=== PATIENT | female | born 1970 | race Two or more races ===

== ENCOUNTER 2016-04-15 18:42 | Emergency (ER) | payer MEDICAID ==
[~2016-04-15] VITALS: Ht 154.9 cm; Wt 51.7 kg
[~2016-04-15 18:42] MED LIST: CIPROFLOXACIN500 M2 ORAL; MACROBID100 MG ORAL; TYLENOL650 MG/20. ORAL
[2016-04-15 19:01] VITALS: BP 119/79
[2016-04-15] MEDS ORDERED: DEBROX15 M1 LEFT EAR (19:38)
[2016-04-15] MEDS ORDERED: AMOXICILLIN500 MG ORAL (20:27)
[2016-04-15 20:43] VITALS: BP 94/49
[2016-04-15 20:48] VITALS: BP 94/49
--- NOTE | 2016-04-15 22:05 | Emergency Room Report ---
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 presenting for R hand pain which began 2 days prior. Pt has a hx of MR, psychosis, and seizures. The director life insurance noticed the R hand has been contracted for the past 2 days. The pt is L handed and the director life insurance states the patient does not use the R hand often. The pt and director life insurance deny any trauma to the hand, elbow, or arm. Pain is a 9/10 dull ache and radiated throughout the entire arm. Pain worse with movement of the fingers. No numbness or tingling. No change in mental status, dizziness, blurred vision, N, V, F, chills, DRIVER, myalgia, CP, SOB (BRENDA EAST P.A.) Allergies: Coded Allergies: ASPIRIN (Verified Allergy, Mild, Rash, 10/23/14) PHENYTOIN (Verified Allergy, Mild, Rash, 10/23/14) Patient History Past Medical History: see triage record Pertinent Family History: none Last Menstrual Period: post Now: No : 2 Para: 2 Reviewed Nursing Documentation: PMH: Agreed, PSxH: Agreed (BRENDA EAST P.A.) Nursing Documentation-PMH Hx Neurological Problems: No - SCHIZOPHRENIA Hx Seizures: Yes (BRENDA EAST P.A.) Review of Systems All Other Systems: negative except mentioned in HPI (BRENDA EAST P.A.) Physical Exam Vital Signs Date Time Temp Pulse Resp B/P Pulse Ox O2 Delivery O2 Flow Rate FiO2 04/15/16 18:50 97.9 117 20 119/79 100 Room Air Sp02 EP Interpretation: reviewed, normal General Appearance: no apparent distress, alert, GCS 15, non-toxic Head: normocephalic, atraumatic Eyes: bilateral eye PERRL, bilateral eye normal inspection ENT: hearing grossly normal, normal pharynx, no angioedema, uvula midline, moist mucus membranes, other - L TM erythematous and bulging Neck: full range of motion, supple/symm/no masses Respiratory: chest non-tender, lungs clear, normal breath sounds, speaking full sentences Cardiovascular #1: regular rate, rhythm, no edema Gastrointestinal: normal bowel sounds, non tender, soft, non-distended, no guarding, no rebound Rectal: deferred Genitourinary: normal inspection, no CVA tenderness Musculoskeletal: back normal, gait/station normal, other - Mild flexion of the R hand 3,rd,4th,and 5th digits Neurologic: alert, responsive, explosive ordnance specialist III-XII nml as tested, motor strength/tone normal, sensory intact Psychiatric: judgement/insight normal, memory normal, mood/affect normal Skin: normal color, no rash, warm/dry, well hydrated (BRENDA EAST) Medical Decision Making PA Attestation Dr. Mcgraw is my supervising physician. 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 presenting for R hand pain and ear pain which began 2 days prior. DDx: AOM, otitis externa, pharyngitis DDx: carpal tunnel syndrome, Dupuytren contracture, Volkman contracture, sprain PE: NAD. CN II-XII intact L ear: TM is erythematous and bulging. + cervical lymphad. Mild flexion of the R hand 3,rd,4th,and 5th digits. No discoloration. SILT. Otherwise exam unremarkable. Xray unremarkable. The pt will be treated for otitis media and will FU with PMD for further treatment and workup for the contracture of hand. Mobile Health Vehicle Operator advised of this. ER precautions given (BRENDA EAST) ER Course I agree with PA HPI and PE, as well as their assessment/plan. I also concur with PA review of imaging and rhythm strip without additional interpretation. (JAYSON MCGRAW M.D.) Other X-Ray Diagnostic Results Other X-Ray Diagnostic Results : X-Ray Ordered: R hand Date: Apr 15, 2016 EP Interpretation: Yes Findings: no fractures, no dislocation, no soft tissue swelling Number of Views: 3 PA Scribe Text I am acting as scribe for my supervising physician. My supervising physician's interpretation of the R hand xrays are there are no fractures, dislocations or soft tissue swelling. (BRENDA EAST) Last Vital Signs Date Time Temp Pulse Resp B/P Pulse Ox O2 Delivery O2 Flow Rate FiO2 04/15/16 20:48 89 16 94/49 95 Room Air 04/15/16 20:43 97.7 Status: improved (BRENDA EAST) Disposition: HOME, SELF-CARE Condition: Improved Scripts Amoxicillin* (AMOXIL*) 500 Mg Capsule 500 MG ORAL BID, #20 CAP Prov: BRENDA EAST 04/15/16 Patient Instructions: Otitis Media, Adult Additional Instructions: I discussed my findings with the patient. All questions and concerns have been answered. Treatment and medication compliance have been addressed. I advised the patient that they need to follow up with PMD in 3-5 days. Return to ED if symptoms worsen, new symptoms arise, or if needed for any reason. Patient verbalized understanding of discharge instructions. The patient and director life insurance are advised to followup with her primary care physician and possibly obtain referral for hand specialist. BRENDA EAST Apr 15, 2016 22:05 JAYSON MCGRAW M.D. Apr 17, 2016 03:49
--- NOTE | 2016-04-16 10:02 | Diagnostic Imaging Report ---
Indication: Right hand pain Technique: Right hand 3 views Comparison: None Findings: Flexion of the third, fourth and fifth digits limit evaluation. Otherwise no gross fracture is seen. Bone mineralization is normal. Soft tissues are grossly unremarkable. Impression: Limited examination secondary to flexion of the third, fourth and fifth digits. No gross fracture. Followup/further evaluation recommended as indicated.
== END 2016-04-15 20:50 | disposition home or self-care (01) ==
LOC: EMR 19:45
DX: M24.541 Contracture, right hand (principal); H65.112 Acute and subacute allergic otitis media (mucoid) (sanguinous) (serous), left ear; Z88.6 Allergy status to analgesic agent; Z88.8 Allergy status to other drugs, medicaments and biological substances
CPT/HCPCS: 99283

== ENCOUNTER 2017-01-25 18:59 | Emergency (ER) | payer MEDICAID ==
[~2017-01-25] VITALS: Ht 157.5 cm; Wt 45.4 kg
[~2017-01-25 18:59] MED LIST changes: +AMOXICILLIN500 MG ORAL; +DEBROX15 M1 LEFT EAR
[2017-01-25] MEDS ORDERED: Sodium Chloride 500ML 500 ML IV ONE (19:08)
--- NOTE | 2017-01-25 19:23 | Emergency Room Report ---
History of Present Illness General Chief Complaint: Altered Level of Consciousness Source: Patient, Medical Record Present Illness HPI Patient presents with manufacturing technician from [facility] Patient has developmental delay Apparently patient left the facility 2 weeks ago Came back on Monday and was acting sluggish Appear to be possibly under the influence of drugs There was no reports of vomiting No reports of diarrhea No reports of fevers Allergies: Coded Allergies: ASPIRIN (Verified Allergy, Mild, Rash, 10/23/14) PHENYTOIN (Verified Allergy, Mild, Rash, 10/23/14) Patient History Past Medical History: see triage record Pertinent Family History: none Last Menstrual Period: menopause Reviewed Nursing Documentation: PMH: Agreed, PSxH: Agreed Nursing Documentation-PMH Past Medical History: No History, Except For Hx Neurological Problems: No - SCHIZOPHRENIA Hx Seizures: Yes Review of Systems All Other Systems: negative except mentioned in HPI Physical Exam Vital Signs Date Time Temp Pulse Resp B/P (MAP) Pulse Ox O2 Delivery O2 Flow Rate FiO2 01/25/17 19:04 98.1 67 18 109/76 100 Room Air Sp02 EP Interpretation: reviewed, normal General Appearance: no apparent distress Head: normocephalic, atraumatic Eyes: bilateral eye PERRL, bilateral eye EOMI ENT: hearing grossly normal, normal pharynx, TMs + canals normal, uvula midline Neck: full range of motion, supple, no meningismus, no bony tend Respiratory: lungs clear, normal breath sounds, no rhonchi, no respiratory distress, no retraction, no accessory muscle use Cardiovascular #1: normal peripheral pulses, regular rate, rhythm, no edema, no gallop, no JVD, no murmur Gastrointestinal: normal bowel sounds, non tender, soft, no mass, no organomegaly, non-distended, no guarding, no hernia, no pulsatile mass, no rebound Genitourinary: no CVA tenderness Musculoskeletal: normal inspection Neurologic: responsive, carpenter's assistant III-XII nml as tested, motor strength/tone normal, sensory intact Psychiatric: mood/affect normal - Patient does respond to questions appropriately does have developmental delay Skin: normal color, no rash, warm/dry, palpation normal Lymphatic: normal inspection, no adenopathy Medical Decision Making Diagnostic Impression: Primary Impression: UTI (lower urinary tract infection) Additional Impression: Cocaine use ER Course Multiple differentials considered Patient's manufacturing technician does report previous history of drug abuse this was examined and the patient was positive for cocaine There is also evidence of bladder infection Patient was provided with IV hydration and antibiotics Patient remains appropriate responsive when aroused And at this time stable for close outpatient followup Labs Test 01/25/17 19:14 01/25/17 19:17 Urine Color Yellow Urine Appearance Clear Urine pH 6 (4.5-8.0) Urine Specific [place] 1.025 (1.005-1.035) Urine Protein 2+ (NEGATIVE) Urine Glucose (UA) Negative (NEGATIVE) Urine Ketones 1+ (NEGATIVE) Urine Occult Blood 1+ (NEGATIVE) Urine Nitrite Positive (NEGATIVE) Urine Bilirubin Negative (NEGATIVE) Urine Urobilinogen Normal MG/DL (0.0-1.0) Urine Leukocyte Esterase 3+ (NEGATIVE) Urine RBC 2-4 /HPF (0 - 2) Urine WBC 5-10 /HPF (0 - 2) Urine Squamous Epithelial Cells Few /LPF (NONE/OCC) Urine Bacteria Moderate /HPF (NONE) Urine Trichomonas Few /HPF (NONE) Urine HCG, Qualitative Negative Urine Opiates Screen Negative (NEGATIVE) Urine Barbiturates Screen Negative (NEGATIVE) Phencyclidine (PCP) Screen Negative (NEGATIVE) Urine Amphetamines Screen Negative (NEGATIVE) Urine Benzodiazepines Screen Positive (NEGATIVE) Urine Cocaine Screen Positive (NEGATIVE) Urine Marijuana (THC) Screen Negative (NEGATIVE) White Blood Count 6.1 K/UL (4.8-10.8) Red Blood Count 5.01 M/UL (4.20-5.40) Hemoglobin 15.0 G/DL (12.0-16.0) Hematocrit 46.7 % (37.0-47.0) Mean Corpuscular Volume 93 FL (80-99) Mean Corpuscular Hemoglobin 30.0 PG (27.0-31.0) Mean Corpuscular Hemoglobin Concent 32.2 G/DL (32.0-36.0) Red Cell Distribution Width 12.8 % (11.6-14.8) Platelet Count 187 K/UL (150-450) Mean Platelet Volume 8.6 FL (6.5-10.1) Neutrophils (%) (Auto) 48.4 % (45.0-75.0) Lymphocytes (%) (Auto) 43.3 % (20.0-45.0) Monocytes (%) (Auto) 6.4 % (1.0-10.0) Eosinophils (%) (Auto) 0.8 % (0.0-3.0) Basophils (%) (Auto) 1.1 % (0.0-2.0) Sodium Level 141 MMOL/L (136-145) Potassium Level 3.5 MMOL/L (3.5-5.1) Chloride Level 109 MMOL/L (98-107) Carbon Dioxide Level 23 MMOL/L (21-32) Anion Gap 9 mmol/L (5-15) Blood Urea Nitrogen 14 mg/dL (7-18) Creatinine 1.1 MG/DL (0.55-1.30) Estimat Glomerular Filtration Rate 53.7 mL/min (>60) Glucose Level 117 MG/DL (74-106) Calcium Level 9.4 MG/DL (8.5-10.1) Total Bilirubin 0.2 MG/DL (0.2-1.0) Aspartate Amino Transf (AST/SGOT) 17 U/L (15-37) Alanine Aminotransferase (ALT/SGPT) 16 U/L (12-78) Alkaline Phosphatase 96 U/L (46-116) Total Protein 8.4 G/DL (6.4-8.2) Albumin 3.7 G/DL (3.4-5.0) Globulin 4.7 g/dL Albumin/Globulin Ratio 0.8 (1.0-2.7) Salicylates Level 2.5 ug/mL (2.8-20) Acetaminophen Level < 10 MCG/ML (10-30) Serum Alcohol 3 mg/dL Rhythm Strip Diag. Results EP Interpretation: yes Rate: 77 Rhythm: NSR, no PVC's, no ectopy Last Vital Signs Date Time Temp Pulse Resp B/P (MAP) Pulse Ox O2 Delivery O2 Flow Rate FiO2 01/25/17 19:04 98.1 67 18 109/76 100 Room Air Status: improved Disposition: HOME, SELF-CARE Condition: Improved Scripts Trimethoprim/Sulfamethoxazole 160/800* (BACTRIM DS TABLET*) 1 Each Tablet 1 TAB ORAL Q12H, #14 TAB 0 Refills Prov: MOLINA NG D.O. 01/25/17 Additional Instructions: Patient is provided with the discharge instructions notified to follow up with primary doctor in the next 2-3 days otherwise return to the er with any worsening symptoms. Please note that this report is being documented using DRAGON technology. This can lead to erroneous entry secondary to incorrect interpretation by the dictating instrument. MOLINA NG D.O. Jan 25, 2017 19:23
[2017-01-25 20:18] LABS: BASOPHILS % (AUTO) 1.1 % (0.0-2.0); EOSINOPHILS % (AUTO) 0.8 % (0.0-3.0); HEMATOCRIT 46.7 % (37.0-47.0); LYMPHOCYTES % (AUTO) 43.3 % (20.0-45.0); MEAN CORPUSCULAR VOLUME 93 FL (80-99); MONOCYTES % (AUTO) 6.4 % (1.0-10.0); NEUTROPHILS % (AUTO) 48.4 % (45.0-75.0); PLATELET COUNT 187 K/UL (150-450); RED BLOOD COUNT 5.01 M/UL (4.20-5.40); RED CELL DISTRIBUTION WIDTH 12.8 % (11.6-14.8); WHITE BLOOD COUNT 6.1 K/UL (4.8-10.8)
[2017-01-25 20:23] LABS: APPEARANCE,URINE CLEAR; BILIRUBIN, URINE NEGATIVE (NEGATIVE); COLOR,URINE YELLOW; GLUCOSE, URINE (UA) NEGATIVE (NEGATIVE); KETONES,URINE 1+ (NEGATIVE); LEUKOCYTE ESTERASE ,URINE 3+ (NEGATIVE); NITRITE,URINE POSITIVE (NEGATIVE); PH,URINE 6 (4.5-8.0); PROTEIN,URINE 2+ (NEGATIVE); UROBILINOGEN,URINE NORMAL MG/DL (0.0-1.0)
[2017-01-25 20:44] LABS: ALANINE AMINOTRANSFERASE 16 U/L (12-78); ALBUMIN 3.7 G/DL (3.4-5.0); ALBUMIN/GLOBULIN RATIO 0.8 (1.0-2.7); ALKALINE PHOSPHATASE 96 U/L (46-116); ANION GAP 9 mmol/L (5-15); ASPARTATE AMINO TRANSFERASE 17 U/L (15-37); BILIRUBIN,TOTAL 0.2 MG/DL (0.2-1.0); BLOOD UREA NITROGEN 14 mg/dL (7-18); CALCIUM 9.4 MG/DL (8.5-10.1); CARBON DIOXIDE 23 MMOL/L (21-32); CHLORIDE 109 MMOL/L (98-107); CREATININE 1.1 MG/DL (0.55-1.30); POTASSIUM 3.5 MMOL/L (3.5-5.1); SODIUM 141 MMOL/L (136-145)
[2017-01-25] MEDS ORDERED: cefTRIAXone 1 GM in NS 55 ML IVPB ONE (20:45)
[2017-01-25] MEDS ORDERED: BACTRIM DS TAB1 EAC1 ORAL (20:58)
[2017-01-25 21:45] VITALS: BP 109/76
== END 2017-01-25 21:45 | disposition home or self-care (01) ==
LOC: EMR 19:30
DX: N39.0 Urinary tract infection, site not specified (principal); F14.90 Cocaine use, unspecified, uncomplicated; F20.9 Schizophrenia, unspecified
CPT/HCPCS: 36415; 80053; 80307; 80329; 81003; 81025; 85025; 87086; 87181; 96361; 96374; 99284; J0696; J7040

== ENCOUNTER 2017-11-20 23:05 | Emergency (ER) | payer MEDICAID, OTHER ==
[~2017-11-20] VITALS: Ht 154.9 cm; Wt 54.9 kg
[~2017-11-20 23:05] MED LIST changes: +BACTRIM DS TAB1 EAC1 ORAL
[2017-11-21 00:12] LABS: BILIRUBIN, URINE NEGATIVE (NEGATIVE); GLUCOSE, URINE (UA) NEGATIVE (NEGATIVE); KETONES,URINE NEGATIVE (NEGATIVE); LEUKOCYTE ESTERASE ,URINE 2+ (NEGATIVE); NITRITE,URINE POSITIVE (NEGATIVE); PH,URINE 6 (4.5-8.0); PROTEIN,URINE NEGATIVE (NEGATIVE); UROBILINOGEN,URINE NORMAL MG/DL (0.0-1.0)
[2017-11-21 00:20] LABS: COLOR,URINE YELLOW
[2017-11-21 00:21] LABS: APPEARANCE,URINE CLOUDY
[2017-11-21 00:44] LABS: BASOPHILS % (AUTO) 1.1 % (0.0-2.0); HEMATOCRIT 36.9 % (37.0-47.0); HEMOGLOBIN 12.5 G/DL (12.0-16.0); LYMPHOCYTES % (AUTO) 52.2 % (20.0-45.0); MEAN CORPUSCULAR VOLUME 90 FL (80-99); MONOCYTES % (AUTO) 5.5 % (1.0-10.0); NEUTROPHILS % (AUTO) 40.2 % (45.0-75.0); PLATELET COUNT 201 K/UL (150-450); RED BLOOD COUNT 4.09 M/UL (4.20-5.40); RED CELL DISTRIBUTION WIDTH 11.5 % (11.6-14.8); WHITE BLOOD COUNT 6.7 K/UL (4.8-10.8)
[2017-11-21 00:56] LABS: ALANINE AMINOTRANSFERASE 12 U/L (12-78); ALBUMIN 2.8 G/DL (3.4-5.0); ALBUMIN/GLOBULIN RATIO 0.6 (1.0-2.7); ALKALINE PHOSPHATASE 80 U/L (46-116); ANION GAP 9 mmol/L (5-15); ASPARTATE AMINO TRANSFERASE 11 U/L (15-37); BILIRUBIN,TOTAL 0.2 MG/DL (0.2-1.0); CALCIUM 8.7 MG/DL (8.5-10.1); CARBON DIOXIDE 26 MMOL/L (21-32); CHLORIDE 107 MMOL/L (98-107); CKMB 0.9 NG/ML (0.0-3.6); CREATINE KINASE 130 U/L (26-308); POTASSIUM 3.8 MMOL/L (3.5-5.1); SODIUM 142 MMOL/L (136-145)
[2017-11-21 01:06] LABS: BLOOD UREA NITROGEN 19 mg/dL (7-18)
--- NOTE | 2017-11-21 01:24 | Emergency Room Report ---
History of Present Illness General Chief Complaint: Altered Level of Consciousness Source: Friend, Significant Other, Caregiver Present Illness HPI Patient presents with members of the facility that she is staying at It was reported the patient was lethargic today They report that the patient has had several recent episodes where she has left the facility Patient uses drugs Has been at multiple hospitals including [facility] More recently she left 4 days ago and again returned lethargic and appearing weak patient herself does not report much history There was no reports of vomiting or diarrhea Allergies: Coded Allergies: ASPIRIN (Verified Allergy, Mild, Rash, 10/23/14) PHENYTOIN (Verified Allergy, Mild, Rash, 10/23/14) Patient History Limited by: medical condition Past Medical History: see triage record Pertinent Family History: none Reviewed Nursing Documentation: PMH: Agreed; PSxH: Agreed Nursing Documentation-PMH Hx Neurological Problems: No - SCHIZOPHRENIA Hx Seizures: Yes Review of Systems All Other Systems: limited - Other than the ones mentioned in the history of present illness all others are reviewed however they do stay limited due to the patient's mental status Physical Exam Vital Signs Date Time Temp Pulse Resp B/P (MAP) Pulse Ox O2 Delivery O2 Flow Rate FiO2 11/20/17 23:21 97.7 70 16 112/67 96 Room Air 97.7 Sp02 EP Interpretation: reviewed, normal General Appearance: no apparent distress Head: normocephalic, atraumatic Eyes: bilateral eye PERRL, bilateral eye EOMI ENT: hearing grossly normal, dry mucus membranes Neck: supple Respiratory: lungs clear, normal breath sounds Cardiovascular #1: regular rate, rhythm Gastrointestinal: non tender, soft Musculoskeletal: normal inspection Neurologic: responsive Skin: normal color, no rash Lymphatic: no adenopathy Medical Decision Making Diagnostic Impression: Primary Impression: Drug abuse Additional Impression: UTI (urinary tract infection) ER Course Multiple differentials considered Patient has had similar presentation here previously as well Paralegals also reports of recent presentation at [facility] Patient resting comfortably throughout her stay At this time drug screen does reveal evidence of benzodiazepine and cocaine Otherwise blood work remains appropriate Patient at this time more awake and alert and appropriate Appropriately arousable And solar installation helper does feel stable taken the patient back to the boarding care patient also initiated on antibiotics for possible UTI, however there is significant contamination with a urine sample Labs Test 11/20/17 23:49 8/28/18 00:00 Urine Color Yellow Urine Appearance Cloudy Urine pH 6 (4.5-8.0) Urine Specific [place] 1.020 (1.005-1.035) Urine Protein Negative (NEGATIVE) Urine Glucose (UA) Negative (NEGATIVE) Urine Ketones Negative (NEGATIVE) Urine Blood Negative (NEGATIVE) Urine Nitrite Positive (NEGATIVE) Urine Bilirubin Negative (NEGATIVE) Urine Urobilinogen Normal MG/DL (0.0-1.0) Urine Leukocyte Esterase 2+ (NEGATIVE) Urine RBC 0-2 /HPF (0 - 2) Urine WBC 30-40 /HPF (0 - 2) Urine Squamous Epithelial Cells None /LPF (NONE/OCC) Urine Bacteria Many /HPF (NONE) Urine HCG, Qualitative Negative (NEGATIVE) Urine Opiates Screen Negative (NEGATIVE) Urine Barbiturates Screen Negative (NEGATIVE) Phencyclidine (PCP) Screen Negative (NEGATIVE) Urine Amphetamines Screen Negative (NEGATIVE) Urine Benzodiazepines Screen Positive (NEGATIVE) Urine Cocaine Screen Positive (NEGATIVE) Urine Marijuana (THC) Screen Negative (NEGATIVE) White Blood Count 6.7 K/UL (4.8-10.8) Red Blood Count 4.09 M/UL (4.20-5.40) Hemoglobin 12.5 G/DL (12.0-16.0) Hematocrit 36.9 % (37.0-47.0) Mean Corpuscular Volume 90 FL (80-99) Mean Corpuscular Hemoglobin 30.5 PG (27.0-31.0) Mean Corpuscular Hemoglobin Concent 33.8 G/DL (32.0-36.0) Red Cell Distribution Width 11.5 % (11.6-14.8) Platelet Count 201 K/UL (150-450) Mean Platelet Volume 9.6 FL (6.5-10.1) Neutrophils (%) (Auto) 40.2 % (45.0-75.0) Lymphocytes (%) (Auto) 52.2 % (20.0-45.0) Monocytes (%) (Auto) 5.5 % (1.0-10.0) Eosinophils (%) (Auto) 1.0 % (0.0-3.0) Basophils (%) (Auto) 1.1 % (0.0-2.0) Sodium Level 142 MMOL/L (136-145) Potassium Level 3.8 MMOL/L (3.5-5.1) Chloride Level 107 MMOL/L (98-107) Carbon Dioxide Level 26 MMOL/L (21-32) Anion Gap 9 mmol/L (5-15) Blood Urea Nitrogen 19 mg/dL (7-18) Creatinine 1.0 MG/DL (0.55-1.30) Estimat Glomerular Filtration Rate 59.7 mL/min (>60) Glucose Level 96 MG/DL (74-106) Lactic Acid Level 1.30 mmol/L (0.4-2.0) Calcium Level 8.7 MG/DL (8.5-10.1) Total Bilirubin 0.2 MG/DL (0.2-1.0) Aspartate Amino Transf (AST/SGOT) 11 U/L (15-37) Alanine Aminotransferase (ALT/SGPT) 12 U/L (12-78) Alkaline Phosphatase 80 U/L (46-116) Total Creatine Kinase 130 U/L (26-308) Creatine Kinase MB 0.9 NG/ML (0.0-3.6) Creatine Kinase MB Relative Index 0.6 Troponin I 0.000 ng/mL (0.000-0.056) Total Protein 7.4 G/DL (6.4-8.2) Albumin 2.8 G/DL (3.4-5.0) Globulin 4.6 g/dL Albumin/Globulin Ratio 0.6 (1.0-2.7) Lipase 140 U/L (73-393) Serum Alcohol < 3 mg/dL EKG Diagnostic Results Rate: normal Rhythm: NSR ST Segments: no acute changes Rhythm Strip Diag. Results EP Interpretation: yes Rate: 66 Rhythm: NSR, no PVC's, no ectopy Chest X-Ray Diagnostic Results Chest X-Ray Diagnostic Results : Chest X-Ray Ordered: Yes # of Views/Limited/Complete: 1 View Indication: Chest Pain EP Interpretation: Yes Interpretation: no consolidation, no effusion, no pneumothorax Impression: No acute disease Electronically Signed by: Luiz De Jesus DO Last Vital Signs Date Time Temp Pulse Resp B/P (MAP) Pulse Ox O2 Delivery O2 Flow Rate FiO2 11/20/17 23:21 97.7 70 16 112/67 96 Room Air 97.7 Status: improved Disposition: HOME, SELF-CARE Condition: Improved Scripts Cephalexin* (KEFLEX*) 500 Mg Capsule 500 MG ORAL EVERY 6 HOURS for 7 Days, CAP Prov: Luiz De Jesus DO 11/21/17 Referrals: RUSS RASHEED,REFERRING (PCP) Additional Instructions: Patient is provided with the discharge instructions notified to follow up with primary doctor in the next 2-3 days otherwise return to the er with any worsening symptoms. Please note that this report is being documented using DRAGON technology. This can lead to erroneous entry secondary to incorrect interpretation by the dictating instrument. Luiz De Jesus DO Nov 21, 2017 01:24
[2017-11-21] MEDS ORDERED: cefTRIAXone 1 GM in NS 55 ML IVPB ONE (02:15)
[2017-11-21 02:52] VITALS: BP 121/82
[2017-11-21] MEDS ORDERED: CEPHALEXIN500 MG ORAL (04:34)
[2017-11-21 04:44] VITALS: BP 112/91
[2017-11-21 05:00] VITALS: BP 112/91
--- NOTE | 2017-11-21 08:58 | Diagnostic Imaging Report ---
Indication: Chest pain Technique: One view of the chest Comparison: none Findings: Lungs and pleural spaces are clear. Heart size is normal Impression: No acute process
--- NOTE | 2017-11-21 15:41 | Cardiology Report ---
APPROVED REPORT EKG Measurement Heart [id number] Normal sinus rhythm Normal ECG
== END 2017-11-21 05:00 | disposition home or self-care (01) ==
LOC: EMR 23:26
DX: F14.10 Cocaine abuse, uncomplicated (principal); F13.14 Sedative, hypnotic or anxiolytic abuse with sedative, hypnotic or anxiolytic-induced mood disorder; N39.0 Urinary tract infection, site not specified
CPT/HCPCS: 36415; 71045; 80053; 80307; 80329; 81003; 81025; 82550; 82553; 83605; 83690; 84484; 85025; 87040; 87086; 87181; 93005; 96361; 96365; 99285; J0696